=== PATIENT | female | born 1970 | race Native Hawaiian/Other Pacific Islander ===

== ENCOUNTER 2021-04-05 11:22 | Outpatient (CLI) | payer OTHER | END 2021-04-05 19:47 | disposition home or self-care (01) | LOC: RAD 11:22 | PROVIDERS: ATTEND Nurse Practitioner Family | DX: M25.50 Pain in unspecified joint (principal); M25.561 Pain in right knee ==

== ENCOUNTER 2021-04-25 08:24 | Outpatient (CLI) | payer OTHER ==
[2021-04-25 08:40] LABS: PLATELET COUNT 194 K/uL (152-353)
[2021-04-25 09:01] LABS: POTASSIUM 4.1 mmol/L (3.6-5.2)
== END 2021-04-25 19:18 | disposition home or self-care (01) ==
LOC: LABW 08:24 → RAD 08:24 → MAMMO 13:30 → LABW 19:18
PROVIDERS: ATTEND Nurse Practitioner Family
DX: R14.0 Abdominal distension (gaseous) (principal); J40 Bronchitis, not specified as acute or chronic; R60.0 Localized edema; Z12.31 Encounter for screening mammogram for malignant neoplasm of breast; I10 Essential (primary) hypertension; R63.5 Abnormal weight gain; R06.00 Dyspnea, unspecified
CPT/HCPCS: 36415; 80053; 80061; 81000; 83880; 84439; 84443; 85027; 85379

== ENCOUNTER 2021-05-10 12:33 | Outpatient (CLI) | payer OTHER | END 2021-05-10 19:13 | disposition home or self-care (01) | LOC: MAMMO 12:33 | PROVIDERS: ATTEND Internal Medicine | DX: R92.8 Other abnormal and inconclusive findings on diagnostic imaging of breast (principal) ==

== ENCOUNTER 2021-06-13 10:01 | Outpatient (CLI) | payer OTHER | END 2021-06-13 19:11 | disposition home or self-care (01) | LOC: CT 10:01 | PROVIDERS: ATTEND Internal Medicine | DX: R10.32 Left lower quadrant pain (principal) | CPT/HCPCS: 36415; 82565; 84520; Q9963 ==

== ENCOUNTER 2022-05-14 12:35 | Outpatient (CLI) | payer BC | END 2022-05-14 19:52 | disposition home or self-care (01) | LOC: MAMMO 12:35 | PROVIDERS: ATTEND Internal Medicine | DX: Z12.31 Encounter for screening mammogram for malignant neoplasm of breast (principal); Z13.820 Encounter for screening for osteoporosis; N95.8 Other specified menopausal and perimenopausal disorders ==